=== PATIENT | male | born 2000 | race African-American/Black ===

== ENCOUNTER 2024-10-15 22:35 | Emergency (ER) | payer SELFPAY ==
[~2024-10-15] VITALS: Ht 175.3 cm; Wt 142.2 kg
[2024-10-15 22:37] VITALS: BP 129/91; PULSE 84; RESP 16; TEMP 98.3; O2SAT 95
== END 2024-10-16 01:45 | disposition left against medical advice (07) ==
LOC: ER 22:35
DX: R10.9 Unspecified abdominal pain (principal); Z53.21 Procedure and treatment not carried out due to patient leaving prior to being seen by health care provider